=== PATIENT | male | born 1985 | race Caucasian/White ===

== ENCOUNTER 2024-07-06 08:37 | Outpatient (CLI) | payer OTHER, SELFPAY ==
--- OUTSIDE RECORDS SUMMARY | 2024-07-08 11:17 | XMS_ITS | Clinical Summary ---
Author Organization [employer] [facility] Address [place], [place] [address] Care Team Providers Care Licensed Nuclear Control Room Operator Name Role Phone Pcp, No Primary Care Provider Unavailabl e Allergies Active Allergy Reactions Criticality Noted Date Comments Minocycline *Unknown 02/12/2019 Social History Tobacco Use Types Packs/Day Years Used Date Smoking Tobacco: Never Assessed Sex and Gender Information Value Date Recorded Sex Assigned at Not on file Gender Identity Not on file Sexual Orientation Not on file Obstetrics History Last Filed Vital Signs Vital Sign Reading Time Taken Comments Blood Pressure 117/76 02/15/2019 5:00 PM CDT Pulse 73 02/15/2019 5:00 PM CDT Temperature 36.7 ??C (98 ??F) 02/15/2019 5:00 PM CDT Respiratory Rate 16 02/15/2019 5:00 PM CDT Oxygen Saturation 98% 02/15/2019 5:00 PM CDT Inhaled Oxygen Concentration - - Weight 77 kg (169 lb 12.1 oz) 02/15/2019 11:53 A M CDT Height 190.5 cm (6' 3) 02/15/2019 11:53 AM CDT Body Mass Index 21.22 02/15/2019 11:53 AM CDT Plan of Treatment Not on file Care Teams Licensed Nuclear Control Room Operator Relationship Specialty Start Date End Date Pcp, No . PCP - General 02/10/19
== END 2024-07-06 08:38 | disposition home or self-care (01) ==
LOC: NFLDREF 07-08 11:15
PROVIDERS: PCP Internal Medicine; Referring Provider Internal Medicine; Visit Provider Family Medicine
DX: Z13.1 Encounter for screening for diabetes mellitus (principal); Z13.6 Encounter for screening for cardiovascular disorders
CPT/HCPCS: 80061; 82947